=== PATIENT | female | born 1995 | race Caucasian/White ===

== ENCOUNTER 2024-02-15 05:38 | Day surgery (SDC) | payer OTHER ==
[2024-02-13 10:31] LABS: URINE APPEARANCE Clear; URINE BILIRRUBIN Negative (NEGATIVE); URINE BLOOD Negative; URINE COLOR Yellow; URINE GLUCOSE Negative (NEGATIVE); URINE LEUKOCYTE Trace; URINE NITRATE Negative; URINE PROTEIN Negative (NEGATIVE); URINE UROBILINOGEN 0.2 E.U./dl
[2024-02-13 10:32] LABS: URINE BACTERIA 2382.3 uL (0.0-1933); URINE EPITHELIAL CELLS 22.1 uL (0.0-38.8); URINE RBC 5.1 uL (0.0-20.8)
[2024-02-13 10:40] LABS: HEMATOCRIT 37.7 % (36.0-45.00); HEMOGLOBIN 12.9 g/dL (12.0-15.00); MEAN CELL VOLUME 87.2 fL (80.00-100.00); MEAN CORPUSCULAR HEMOGLOBIN 29.9 pg (27.00-32.0); MEAN CORPUSCULAR HGB CONC 34.2 g/dl (32.0-36.0); PLATELET COUNT 231 K/uL (150-450); RED BLOOD COUNT 4.32 M/uL (4.00-6.00); RED CELL DISTRIBUTION WIDTH 13.8 % (11.5-14.5)
[2024-02-13 11:05] LABS: INR 1.07; PARTIAL THROMBOPLASTIN TIME 29.4 SECONDS (22.0-34.0); PROTHROMBIN TIME 11.2 SECONDS (9.0-11.5)
[2024-02-13 11:23] LABS: ALBUMIN 4.2 gm/dL (3.4-5.0); BILIRUBIN TOTAL 0.69 mg/dL (0.3-1.2); CALCIUM 9.7 mg/dL (8.5-10.1); CREATININE SERUM 0.69 mg/dL (0.55-1.02); GFR 100.59; GLOBULINA 3.5 G/DL (2.4-3.5); POTASSIUM 3.84 mEq/L (3.5-5.1); TOTAL PROTEIN 7.7 gm/dL (6.4-8.2)
[2024-02-15] MEDS ORDERED: POVIDONE-IODINE 118 ML BOTT TOP ONE (10:00)
== END 2024-02-15 15:00 | disposition home or self-care (01) ==
LOC: CIR.AMB 05:38
PROVIDERS: ATTEND Obstetrics & Gynecology Gynecology
DX: N84.0 Polyp of corpus uteri (principal); N97.9 Female infertility, unspecified

== ENCOUNTER 2025-02-06 00:41 | Inpatient (IN) | payer OTHER ==
[~2025-02-06] VITALS: Ht 165.1 cm; Wt 77.1 kg
[2025-02-06] VITALS (10 sets, daily range): BP systolic 99–139; BP diastolic 55–72
[2025-02-06] MEDS ORDERED: AMPICILLIN SODIUM 2,000 MG VIAL IV ONE (00:45)
[2025-02-06] MEDS ORDERED: RINGERS SOLUTION,LACTATED 1,000 ML IV SCH (00:45)
[2025-02-06] MEDS ORDERED: MORPHINE SULFATE 4 MG/ML CARTRIDGE IV PRN (00:45)
[2025-02-06] MEDS ORDERED: AMPICILLIN SODIUM 1,000 MG VIAL IV SCH ×2 (01:00→05:00)
[2025-02-06] MEDS ORDERED: PRENATAL TABLE1 EAC1 PO (01:22)
[2025-02-06 01:33] LABS: BASO % 0.5 % (0.1-1.2); EOS # 0.13 (0.04-0.54); EOS % 1.0 % (0.7-7.0); LYMPH # 2.57 (1.18-3.74); LYMPH % 20.7 % (19.3-53.1); MEAN PLATELET VOLUME 11.90 fl (9.4-12.4); MONO # 1.03 (0.24-0.82); MONO % 8.3 % (4.7-12.5); NEUT # 8.09 (1.56-6.13); NEUT % 65.4 % (34.0-71.1); RED CELL DISTRIBUTION WIDTH 14.0 % (11.6-14.4)
[2025-02-06 01:55] LABS: EOSINOPHIL MAN 2.0 %; LYMPHOCYTE MAN 23.0 %; METAMYELOCYTE 1.0 %; MONOCYTE MAN 8.0 %; NEUTROPHILS MAN 65.0 %
[2025-02-06 02:02] LABS: ALT/SGPT 21.0 U/L (12-78); AST/SGOT 18.0 U/L (15-37); BILIRUBIN TOTAL 0.56 mg/dL (0.3-1.2); BUN CREA RATIO 25.0 (7.0-25.0); CREATININE SERUM 0.51 mg/dL (0.55-1.02); GFR 141.59; GLOBULINA 3.2 G/DL (2.4-3.5); GLUCOSE FASTING 86.0 mg/dL (65-100); OSMOLALITY SERUM 277.0 MOSM/KG (275-295)
[2025-02-06 02:08] LABS: INR 0.96
[2025-02-06] MEDS ORDERED: OXYTOCIN 500 ML IV ONE (07:30)
[2025-02-06] MEDS ORDERED: OXYTOCIN 500 ML IV SCH (08:00)
[2025-02-06] MEDS ORDERED: OXYTOCIN 1,000 ML IV SCH (19:15)
[2025-02-06] MEDS ORDERED: ERYTHROMYCIN BASE OPHT 1GM EACH TUBE OP ONE (19:15)
[2025-02-06] MEDS ORDERED: CHLORHEXIDINE GLUCONATE 120 ML BOTTLE TOP ONE (19:15)
[2025-02-06] MEDS ORDERED: DOCUSATE SODIUM 100MG CAP PO SCH (20:48)
[2025-02-06] MEDS ORDERED: CHLORHEXIDINE GLUCONATE 120 ML BOTTLE TOP SCH (21:00)
[2025-02-06] MEDS ORDERED: OXYTOCIN 1,000 ML IV ONE (21:00)
[2025-02-07] VITALS: BP 122/75
[2025-02-07 06:11] LABS: BASO % 0.3 % (0.1-1.2); EOS # 0.09 (0.04-0.54); EOS % 0.5 % (0.7-7.0); LYMPH # 2.79 (1.18-3.74); LYMPH % 14.9 % (19.3-53.1); MEAN PLATELET VOLUME 12.00 fl (9.4-12.4); MONO # 1.58 (0.24-0.82); MONO % 8.4 % (4.7-12.5); NEUT # 13.89 (1.56-6.13); NEUT % 74.3 % (34.0-71.1); RED CELL DISTRIBUTION WIDTH 13.8 % (11.6-14.4)
[2025-02-07 08:58] VITALS: BP 115/72
[2025-02-07] MEDS ORDERED: PNV,CALCIUM 72/IRON/FOLIC ACID 1 TAB TABLET PO SCH (09:00)
[2025-02-07 18:30] VITALS: BP 120/80
[2025-02-08 02:57] VITALS: BP 122/74
[2025-02-08 08:49] VITALS: BP 101/64
== END 2025-02-08 18:27 | disposition home or self-care (01) | DRG 805 ==
LOC: LDR → OB/GYN 00:41 → LDR 00:41 → OB/GYN 08:29
PROVIDERS: Obstetrics & Gynecology Gynecology; ADMIT Obstetrics & Gynecology; ATTEND Obstetrics & Gynecology
PROC: 10E0XZZ Delivery of Products of Conception, External Approach (ICD-10-PCS; principal; 2025-02-06)
PROC: 0UQG7ZZ Repair Vagina, Via Natural or Artificial Opening (ICD-10-PCS; 2025-02-06)
PROC: 4A1HXCZ Monitoring of Products of Conception, Cardiac Rate, External Approach (ICD-10-PCS; 2025-02-06)
DX: O71.4 Obstetric high vaginal laceration alone (principal); O60.14X0 Preterm labor third trimester with preterm delivery third trimester, not applicable or unspecified; Z37.0 Single live birth; O69.81X0 Labor and delivery complicated by cord around neck, without compression, not applicable or unspecified; Z3A.36 36 weeks gestation of pregnancy